=== PATIENT | male | born 1960 | race Caucasian/White ===

== ENCOUNTER 2018-07-27 10:02 | Emergency (ER) | payer BC ==
[~2018-07-27] VITALS: Ht 175.3 cm; Wt 95.0 kg
[~2018-07-27 10:02] MED LIST: OXYC-138 PO
[2018-07-27] MEDS ORDERED: oxyCODONE/APAP 10/325mg tablet PO ONE (10:55)
[2018-07-27] MEDS ORDERED: normal saline 1000ML IV soln IV ONE (10:55)
[2018-07-27] MEDS ORDERED: morphine 4 MG/ML inj SYRINge IV ONE ×3 (10:55→12:50)
[2018-07-27] MEDS ORDERED: ondansetron/PF 4mg/2ml inj IV ONE (10:55)
[2018-07-27 11:45] LABS: BASOPHILS % (AUTO) 0.7 % (0-1); EOSINOPHILS # (AUTO) 0.1 X10'3 (0-0.9); EOSINOPHILS % (AUTO) 1.9 % (0-6); HEMATOCRIT 44.8 % (42.0-52.0); HEMOGLOBIN 15.2 g/dl (14.0-17.9); LYMPHOCYTES # (AUTO) 1.4 X10'3 (1.1-4.8); LYMPHOCYTES % (AUTO) 21.4 % (21-51); MEAN CORPUSCULAR HEMOGLOBIN 34.2 PG (27.0-31.0); MEAN CORPUSCULAR VOLUME 100.7 FL (78-98); MEAN PLATELET VOLUME 7.4 FL (7.4-10.4); MONOCYTES # (AUTO) 0.8 X10'3 (0-0.9); MONOCYTES % (AUTO) 11.5 % (2-12); NEUTROPHILS # (AUTO) 4.3 X10'3 (1.8-7.7); NEUTROPHILS % (AUTO) 64.5 % (42-75); PLATELET COUNT 205 X10'3 (140-440); RED BLOOD COUNT 4.45 X10'6 (4.70-6.10); RED CELL DISTRIBUTION WIDTH 14.8 % (11.5-14.5); WHITE BLOOD COUNT 6.6 X10'3 (4.5-11.0)
[2018-07-27 11:55] LABS: CLARITY,URINE CLEAR (Clear); COLOR,URINE STRAW (Yellow); GLUCOSE, URINE NEGATIVE (Neg); KETONES,URINE NEGATIVE (Neg); LEUKOCYTE ESTERASE ,URINE NEGATIVE (Neg); NITRITES, URINE NEGATIVE (Neg); OCCULT BLOOD,URINE NEGATIVE (Neg); PH,URINE 7.5 (4.8-8.0); PROTEIN,URINE NEGATIVE (Neg); UROBILINOGEN,URINE 0.2 E.U/dL (0.2-1.0)
[2018-07-27 11:56] LABS: UA COLLECTION TYPE CLN CATCH MIDSTREAM
[2018-07-27 11:58] LABS: ALANINE AMINOTRANSFERASE 42 U/L (12-78); ALBUMIN 4.2 G/DL (3.4-5.0); ALKALINE PHOSPHATASE 83 IU/L (46-116); ANION GAP 10 (8-16); ASPARTATE AMINO TRANSFERASE 69 U/L (10-37); BILIRUBIN,TOTAL 0.3 MG/DL (0.1-1.0); BLOOD UREA NITROGEN 9 MG/DL (7-18); BUN/CREATININE RATIO 11.7 (5.4-32.0); CALCIUM 9.4 MG/DL (8.5-10.1); CHLORIDE 99 MMOL/L (99-107); CREATININE 0.77 MG/DL (0.60-1.10); ETHANOL 0.188 GM/DL (0.0-0.010); GLUCOSE 113 MG/DL (70-104); POTASSIUM 3.4 MMOL/L (3.5-5.1); SODIUM 138 MMOL/L (135-145); TOTAL CARBON DIOXIDE 28.7 MMOL/L (24-32); TOTAL PROTEIN 8.3 G/DL (6.4-8.2); eGFR > 90 ML/MIN
[2018-07-27] MEDS ORDERED: iohexol 300mg/ml 100ml inj. ONE (12:04)
[2018-07-27 12:08] LABS: URINE AMPHETAMINE SCREEN NEGATIVE (Neg); URINE BARBITUATE SCREEN NEGATIVE (Neg); URINE BENZODIAZEPINES SCREEN NEGATIVE (Neg); URINE CANNABINOID SCREEN NEGATIVE (Neg); URINE COCAINE SCREEN NEGATIVE (Neg); URINE METHADONE SCREEN NEGATIVE (Neg); URINE OPIATE SCREEN NEGATIVE (Neg); URINE PHENCYCLIDINE SCREEN NEGATIVE (Neg)
[2018-07-27 12:30] VITALS: BP 133/84
[2018-07-27] MEDS ORDERED: DOXY100C43 PO (12:50)
[2018-07-27] MEDS ORDERED: CEPH-571 PO (12:50)
== END 2018-07-27 13:24 | disposition home or self-care (01) ==
LOC: ER 10:02
DX: F10.129 Alcohol abuse with intoxication, unspecified (principal); G89.29 Other chronic pain; L08.9 Local infection of the skin and subcutaneous tissue, unspecified; R42 Dizziness and giddiness; Y90.0 Blood alcohol level of less than 20 mg/100 ml
CPT/HCPCS: 36415; 73201; 80053; 80305; 80320; 81003; 84145; 85025; 85651; 87040; 96361; 96374; 96375; 96376; 99284; J2270; J2405; J7030; Q9967; 83605

== ENCOUNTER 2018-08-06 15:45 | Emergency (ER) | payer BC ==
[~2018-08-06] VITALS: Ht 177.8 cm; Wt 87.3 kg
[~2018-08-06 15:45] MED LIST changes: +CEPH-571 PO; +DOXY100C43 PO
[2018-08-06 17:11] LABS: BASOPHILS % (AUTO) 0.9 % (0-1); EOSINOPHILS # (AUTO) 0.2 X10'3 (0-0.9); EOSINOPHILS % (AUTO) 4.6 % (0-6); HEMATOCRIT 40.1 % (42.0-52.0); HEMOGLOBIN 13.8 g/dl (14.0-17.9); LYMPHOCYTES # (AUTO) 0.9 X10'3 (1.1-4.8); LYMPHOCYTES % (AUTO) 19.1 % (21-51); MEAN CORPUSCULAR HEMOGLOBIN 34.8 PG (27.0-31.0); MEAN CORPUSCULAR HGB CONC 34.3 % (33.0-36.5); MEAN CORPUSCULAR VOLUME 101.4 FL (78-98); MEAN PLATELET VOLUME 6.4 FL (7.4-10.4); MONOCYTES # (AUTO) 0.6 X10'3 (0-0.9); MONOCYTES % (AUTO) 12.1 % (2-12); NEUTROPHILS # (AUTO) 2.9 X10'3 (1.8-7.7); NEUTROPHILS % (AUTO) 63.3 % (42-75); PLATELET COUNT 208 X10'3 (140-440); RED BLOOD COUNT 3.96 X10'6 (4.70-6.10); RED CELL DISTRIBUTION WIDTH 15.4 % (11.5-14.5); WHITE BLOOD COUNT 4.6 X10'3 (4.5-11.0)
[2018-08-06 17:24] LABS: ALANINE AMINOTRANSFERASE 47 U/L (12-78); ALBUMIN 3.1 G/DL (3.4-5.0); ALBUMIN/GLOBULIN RATIO 0.8 (1.1-1.5); ALKALINE PHOSPHATASE 74 IU/L (46-116); ANION GAP 13 (8-16); ASPARTATE AMINO TRANSFERASE 78 U/L (10-37); BILIRUBIN,TOTAL 0.2 MG/DL (0.1-1.0); BLOOD UREA NITROGEN 7 MG/DL (7-18); BUN/CREATININE RATIO 10.4 (5.4-32.0); CHLORIDE 103 MMOL/L (99-107); CREATININE 0.67 MG/DL (0.60-1.10); GLUCOSE 111 MG/DL (70-104); POTASSIUM 3.4 MMOL/L (3.5-5.1); SODIUM 141 MMOL/L (135-145); TOTAL CARBON DIOXIDE 24.8 MMOL/L (24-32); TOTAL PROTEIN 6.9 G/DL (6.4-8.2); eGFR > 90 ML/MIN
[2018-08-06 17:26] LABS: ETHANOL 0.298 GM/DL (0.0-0.010)
[2018-08-06 17:56] LABS: URINE AMPHETAMINE SCREEN NEGATIVE (Neg); URINE BARBITUATE SCREEN NEGATIVE (Neg); URINE BENZODIAZEPINES SCREEN NEGATIVE (Neg); URINE CANNABINOID SCREEN NEGATIVE (Neg); URINE COCAINE SCREEN NEGATIVE (Neg); URINE METHADONE SCREEN NEGATIVE (Neg); URINE OPIATE SCREEN NEGATIVE (Neg); URINE PHENCYCLIDINE SCREEN NEGATIVE (Neg)
[2018-08-06] MEDS ORDERED: ibuprofen tablet 400 MG TABLET PO PRN (19:50)
[2018-08-06] MEDS ORDERED: haloperidol lactate 5mg/ml inj IM PRN (20:25)
[2018-08-06] MEDS ORDERED: haloperidol 5mg tablet PO PRN (20:25)
[2018-08-06] MEDS ORDERED: LORazepam 1 MG tablet PO PRN (20:25)
[2018-08-07 03:21] VITALS: BP 130/80
== END 2018-08-06 22:30 | disposition home or self-care (01) ==
LOC: ER 15:45 → ED HOLD 18:34 → ER 22:30
DX: R45.851 Suicidal ideations (principal); F10.10 Alcohol abuse, uncomplicated; G89.29 Other chronic pain; Z79.2 Long term (current) use of antibiotics; Z79.899 Other long term (current) drug therapy
CPT/HCPCS: 36415; 80053; 80305; 80320; 85025; 99284

== ENCOUNTER 2018-10-11 12:50 | Inpatient (IN) | payer BC | END 2018-10-13 11:30 | disposition home or self-care (01) | LOC: ER 12:50 → ED HOLD 17:24 → PCU 3S 21:01 ==

== ENCOUNTER 2018-10-17 21:35 | Inpatient (IN) | payer BC ==
[~2018-10-17] VITALS: Ht 175.3 cm; Wt 85.1 kg
[~2018-10-17 21:35] MED LIST changes: +ASPI-1071 PO; +ATOR20TA66 PO; +BENA10TA74 PO; +CARV6.253 PO; -CEPH-571 PO; -DOXY100C43 PO; +FOLI1TAB16 PO; +GABA-534 PO; +HYDR12.5 PO; +MULT-1179 PO; +NITR0.4T51 SL; -OXYC-138 PO; +POTA-82 PO; +thiamine tablet PO
[2018-10-17] MEDS ORDERED: normal saline 1000ML IV soln IVB ONE (23:15)
[2018-10-17 23:16] LABS: BASOPHILS # (AUTO) 0.1 X10'3 (0-0.2); BASOPHILS % (AUTO) 1.4 % (0-1); EOSINOPHILS # (AUTO) 0.1 X10'3 (0-0.9); EOSINOPHILS % (AUTO) 0.5 % (0-6); HEMATOCRIT 45.8 % (42.0-52.0); LYMPHOCYTES # (AUTO) 1.9 X10'3 (1.1-4.8); LYMPHOCYTES % (AUTO) 17.4 % (21-51); MEAN CORPUSCULAR HEMOGLOBIN 35.5 PG (27.0-31.0); MEAN CORPUSCULAR HGB CONC 34.9 g/dL (33.0-36.5); MEAN CORPUSCULAR VOLUME 101.9 FL (78-98); MEAN PLATELET VOLUME 7.3 FL (7.4-10.4); MONOCYTES # (AUTO) 0.6 X10'3 (0-0.9); MONOCYTES % (AUTO) 5.3 % (2-12); NEUTROPHILS # (AUTO) 8.1 X10'3 (1.8-7.7); NEUTROPHILS % (AUTO) 75.4 % (42-75); PLATELET COUNT 369 X10'3 (140-440); RED CELL DISTRIBUTION WIDTH 14.3 % (11.5-14.5); WHITE BLOOD COUNT 10.8 X10'3 (4.5-11.0)
[2018-10-17 23:28] LABS: ALANINE AMINOTRANSFERASE 37 U/L (12-78); ALBUMIN 3.5 G/DL (3.4-5.0); ALBUMIN/GLOBULIN RATIO 0.9 (1.1-1.5); ALKALINE PHOSPHATASE 72 IU/L (46-116); ANION GAP 15 (8-16); ASPARTATE AMINO TRANSFERASE 29 U/L (10-37); BILIRUBIN,TOTAL 0.2 MG/DL (0.1-1.0); BLOOD UREA NITROGEN 10 MG/DL (7-18); BUN/CREATININE RATIO 13.3 (5.4-32.0); CALCIUM 8.3 MG/DL (8.5-10.1); CHLORIDE 97 MMOL/L (99-107); CREATININE 0.75 MG/DL (0.60-1.10); GLUCOSE 134 MG/DL (70-104); POTASSIUM 4.7 MMOL/L (3.5-5.1); SODIUM 134 MMOL/L (135-145); TOTAL CARBON DIOXIDE 22.4 MMOL/L (24-32); TOTAL PROTEIN 7.6 G/DL (6.4-8.2); eGFR > 90 ML/MIN
[2018-10-17] MEDS ORDERED: CefTRIAXone/D5W-Rocephin 1gm 50 ML IV ONE (23:35)
[2018-10-17] MEDS ORDERED: azithromycin/NS 500mg/250ml 250 ML IV ONE (23:35)
[2018-10-17 23:49] LABS: TROPONIN I 0.08 NG/ML (0.0-0.05)
[2018-10-18] MEDS ORDERED: furosemide 40mg/4ml inj IV ONE ×2 (00:05→03:15)
[2018-10-18] MEDS ORDERED: furosemide 10 MG/1 ML 10ml inj IV ONE (00:05)
[2018-10-18] MEDS ORDERED: LORazepam 0.5 MG tablet PO PRN (00:20)
--- NOTE | 2018-10-18 01:13 | NUR ---
PATIENT CONTINUES TO REQUEST ATIVAN. HE STATES THAT HE RECIEVED ATIVAN(2MG AT A TIME) THE LAST TIME HE WAS AT THE HOSPITAL. HOWEVER, PATIENT WAS ADMITTED FOR ETOH WITHDRAWL WHICH IS WHY THE ATIVAN WAS PRESCRIBED. PATIENT STATES NEEDS MORE ATIVAN FOR HIS SOB
[2018-10-18] MEDS ORDERED: potassium Cl 40MEQ/NS 500ml 500 ML IV PRN ×2 (02:25)
[2018-10-18] MEDS ORDERED: mag hydrox/Alum hydrox/simeth 30ml oral suspension PO PRN (02:25)
[2018-10-18] MEDS ORDERED: gabapentin 300mg capsule PO SCH (02:25)
[2018-10-18] MEDS ORDERED: ondansetron/PF 4mg/2ml inj IV PRN (02:25)
[2018-10-18] MEDS ORDERED: acetaminophen 325mg tablet PO PRN ×2 (02:25)
[2018-10-18] MEDS ORDERED: magnesium hydroxide 30ml (MOM) UD suspension PO PRN (02:25)
[2018-10-18] MEDS ORDERED: potassium Cl 20 mEq SR tablet PO PRN ×2 (02:25)
--- NOTE | 2018-10-18 06:30 | NUR ---
pt demands to be brought upstairs to pt room. educated about admit process. pt changed into gown and placed on monitor. 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 educated about importance. will continue to susana.
[2018-10-18] MEDS: K and/or MAG REPLACEMENT MC SCH (08:00)
--- NOTE | 2018-10-18 08:30 | NUR ---
pt wants to speak with md. irby hospitalist. awaiting call back.
[2018-10-18] MEDS: enoxaparin 40mg/0.4ml syringe SUBCUT SCH (08:31)
[2018-10-18] MEDS: atorvastatin 20mg tablet PO SCH (08:32)
[2018-10-18] MEDS: gabapentin 400mg capsule PO SCH ×2 (08:32→16:23)
[2018-10-18] MEDS: lisinopril 10 MG tablet PO SCH (08:32)
[2018-10-18] MEDS: thiamine 100mg tablet PO SCH (08:32)
[2018-10-18] MEDS: potassium Cl 20 mEq SR tablet PO SCH (08:32)
[2018-10-18] MEDS: aspirin 81mg tablet.DR PO SCH (08:32)
[2018-10-18] MEDS: folic acid 1mg tablet PO SCH (08:32)
[2018-10-18] MEDS: furosemide 40mg/4ml inj IV SCH ×2 (08:33→16:10)
[2018-10-18] MEDS: HYDROchlorothiazide 12.5mg capsule PO SCH (08:33)
[2018-10-18] MEDS: multivitamins, therapeutics tablet PO SCH (08:33)
--- NOTE | 2018-10-18 08:49 | NUR ---
pt refuses to keep leads on for monitoring. educated about importance. pt continues to refuse.
[2018-10-18 09:35] VITALS: BP 145/88
[2018-10-18 11:00] VITALS: BP 106/61
[2018-10-18] MEDS: LORazepam 0.5 MG tablet PO PRN ×3 (12:04→21:42)
[2018-10-18] MEDS: levoFLOXACIN 500mg tablet PO SCH (12:04)
--- NOTE | 2018-10-18 14:54 | NUR ---
Given CHF exit care, Cardiac Rehab Schedule, and AHA handout, went over the handouts with patient. Educated to patient needs a follow up appointment in week from [place]. Has appointment with Dana Lambert on Friday the . Educated to discuss hospital stay and CHF with Dana Lambert at appointment.
[2018-10-18 15:00] VITALS: BP 132/82
--- NOTE | 2018-10-18 16:21 | NUR ---
PAGER ID: [phone] MESSAGE: [id number] Saurav Cote reports feeling anxious despite the Ativan, he is wondering if his Ativan could be increase. KATI Wynne Ext [phone]
--- NOTE | 2018-10-18 17:48 | NUR ---
PAGER ID: [phone] MESSAGE: [id number] Saurav Hendersonsukhwinder is wondering if his Ativan can be increased. KATI Wynne Ext [phone]
[2018-10-18 18:00] VITALS: BP 111/80
--- NOTE | 2018-10-18 18:00 | NUR ---
Patient in room PCU 3013. I have received report from KATI Wynne and had the opportunity to ask questions and assume patient care.
--- NOTE | 2018-10-18 18:07 | NUR ---
Problems reprioritized. Patient report given, questions answered & plan of care reviewed with KATI Chu.
--- NOTE | 2018-10-18 21:00 | NUR ---
Patient c/o anxiety at the beginning of shift. He had received Ativan 0.5mg at 1600 by dayshift. Patient began reporting that the dose of the Ativan was inadequate, that he had been receiving 2 mg of Ativan IVP at a recent hospital stay. I contacted Dr. Sandoval to ask if he could advise. Per Dr. Sandoval, Patient is only to have the dose of 0.5mg of Ativan and that he had already spoken with the patient regarding this. He would not be be increasing the dose at this time. This was explained to the patient.
[2018-10-18 22:00] VITALS: BP 128/79
[2018-10-18] MEDS: ipratropium/albuterol 3ml nebule NEB SCH (23:48)
[2018-10-19] MEDS: furosemide 40mg/4ml inj IV SCH ×2 (00:12→07:37)
[2018-10-19] MEDS: gabapentin 400mg capsule PO SCH ×2 (00:12→07:36)
[2018-10-19 02:00] VITALS: BP 105/63
[2018-10-19] MEDS: ipratropium/albuterol 3ml nebule NEB SCH ×4 (03:00→11:00)
[2018-10-19] MEDS: LORazepam 0.5 MG tablet PO PRN ×3 (05:20→13:38)
[2018-10-19 06:00] VITALS: BP 115/73
[2018-10-19 06:00] LABS: BASOPHILS # (AUTO) 0.1 X10'3 (0-0.2); BASOPHILS % (AUTO) 0.7 % (0-1); EOSINOPHILS # (AUTO) 0.1 X10'3 (0-0.9); HEMATOCRIT 46.8 % (42.0-52.0); LYMPHOCYTES # (AUTO) 2.5 X10'3 (1.1-4.8); LYMPHOCYTES % (AUTO) 28.9 % (21-51); MEAN CORPUSCULAR HEMOGLOBIN 35.2 PG (27.0-31.0); MEAN CORPUSCULAR HGB CONC 34.2 g/dL (33.0-36.5); MEAN CORPUSCULAR VOLUME 102.9 FL (78-98); MEAN PLATELET VOLUME 7.9 FL (7.4-10.4); MONOCYTES % (AUTO) 11.8 % (2-12); NEUTROPHILS # (AUTO) 4.9 X10'3 (1.8-7.7); NEUTROPHILS % (AUTO) 57.6 % (42-75); PLATELET COUNT 329 X10'3 (140-440); RED BLOOD COUNT 4.55 X10'6 (4.70-6.10); WHITE BLOOD COUNT 8.5 X10'3 (4.5-11.0)
--- NOTE | 2018-10-19 06:00 | NUR ---
Problems reprioritized. Patient report given, questions answered & plan of care reviewed with KATI Wynne.
[2018-10-19 06:16] LABS: ALBUMIN 3.5 G/DL (3.4-5.0); ANION GAP 11 (8-16); BLOOD UREA NITROGEN 16 MG/DL (7-18); BUN/CREATININE RATIO 13.7 (5.4-32.0); CALCIUM 8.5 MG/DL (8.5-10.1); CHLORIDE 97 MMOL/L (99-107); CREATININE 1.17 MG/DL (0.60-1.10); GLUCOSE 105 MG/DL (70-104); SODIUM 142 MMOL/L (135-145); TOTAL CARBON DIOXIDE 34.5 MMOL/L (24-32); eGFR 64 ML/MIN
--- NOTE | 2018-10-19 06:19 | NUR ---
Took critical lab value Potassium of 3.0. Sticky note given to Ricci PARIKH
--- NOTE | 2018-10-19 06:21 | NUR ---
Called Dr Cole to let notify him of K of 3.0. Already have replacement orders in.
[2018-10-19] MEDS: K and/or MAG REPLACEMENT MC SCH (07:20)
[2018-10-19] MEDS: thiamine 100mg tablet PO SCH (07:36)
[2018-10-19] MEDS: atorvastatin 20mg tablet PO SCH (07:36)
[2018-10-19] MEDS: lisinopril 10 MG tablet PO SCH (07:36)
[2018-10-19] MEDS: folic acid 1mg tablet PO SCH (07:36)
[2018-10-19] MEDS: multivitamins, therapeutics tablet PO SCH (07:36)
[2018-10-19] MEDS: aspirin 81mg tablet.DR PO SCH (07:36)
[2018-10-19] MEDS: enoxaparin 40mg/0.4ml syringe SUBCUT SCH (07:37)
[2018-10-19] MEDS: HYDROchlorothiazide 12.5mg capsule PO SCH (07:37)
[2018-10-19] MEDS: potassium Cl 20 mEq SR tablet PO SCH (08:55)
[2018-10-19] MEDS ORDERED: pneumococcal 23-VAL P-sac vacc 25 mcg/0.5ml vial IMVAC ONE (10:00)
[2018-10-19] MEDS ORDERED: FURO-150 PO (10:29)
[2018-10-19] MEDS ORDERED: LEVO500T89 PO (10:29)
[2018-10-19] MEDS ORDERED: CARV-49 PO (10:37)
[2018-10-19] MEDS ORDERED: POTA20TA19 PO (10:38)
[2018-10-19] MEDS ORDERED: potassium Cl 20 mEq SR tablet PO STA (10:41)
[2018-10-19] MEDS: levoFLOXACIN 500mg tablet PO SCH (10:54)
[2018-10-19 11:00] VITALS: BP 136/85
--- NOTE | 2018-10-19 11:02 | NUR ---
PAGER ID: [phone] MESSAGE: [id number] Saurav Butts was wondering if you could talk to him before he leaves he had some questions. KATI Wynne Ext [phone]
[2018-10-19] MEDS ORDERED: potassium Cl 20 mEq SR tablet PO ONE (11:45)
--- NOTE | 2018-10-19 12:21 | NUR ---
Medications delivered by [facility], received Ativan.
--- NOTE | 2018-10-19 13:12 | NUR ---
Daughter called were about patient discharging. I left a message to have S.S. worker give her a call. S.S. talked with daughter. S.S. will come see patient about [phone].
[2018-10-19] MEDS ORDERED: LORazepam 2 mg/ml vial IV ONE (13:15)
--- NOTE | 2018-10-19 14:21 | NUR ---
DC'd. IV and tele out. Stable for DC per MD. Received meds from [facility], received Ativan med from med delivery. Took Uber home. Has appoinment with [facility] on 10/20/18 and rehab set up [facility].
[2018-10-19] MEDS ORDERED: lactobacillus rhamnosus 10,000 MMU CELLS/CAPSULE PO SCH (20:00)
== END 2018-10-19 14:15 | disposition home or self-care (01) | DRG 293 ==
LOC: ER 21:36 → ED HOLD 10-18 02:23 → PCU 3S 10-18 09:35
PROVIDERS: ADMIT Hospitalist; ATTEND Family Medicine
DX: I11.0 Hypertensive heart disease with heart failure (principal); I50.23 Acute on chronic systolic (congestive) heart failure; F10.20 Alcohol dependence, uncomplicated; F41.1 Generalized anxiety disorder; I25.10 Atherosclerotic heart disease of native coronary artery without angina pectoris; G89.29 Other chronic pain; Z87.891 Personal history of nicotine dependence; Z91.14 Patient's other noncompliance with medication regimen
CPT/HCPCS: 36415; 80048; 80053; 83880; 84145; 84484; 85025; 87070; 90732; 94640; 94760; 96365; 96368; 96375; 99285; G0378; J0456; J0696; J1650; J1940; J2405

== ENCOUNTER 2019-12-06 09:18 | Day surgery (SDC) | payer BC, OTHER ==
[2019-12-06] VITALS (9 sets, daily range): BP systolic 105–123; BP diastolic 55–71
[~2019-12-06] VITALS: Ht 177.8 cm; Wt 90.4 kg
[~2019-12-06 09:18] MED LIST changes: +CARV-49 PO; -CARV6.253 PO; +FURO-150 PO; -HYDR12.5 PO; +LEVO500T89 PO; -NITR0.4T51 SL; -POTA-82 PO
[2019-12-06] MEDS ORDERED: normal saline 1,000 ML IV SCH (09:50)
[2019-12-06] MEDS ORDERED: diphenhydrAMINE 25mg capsule PO PRN ×2 (09:50→10:35)
[2019-12-06] MEDS ORDERED: FURO40TA4 PO (10:03)
[2019-12-06] MEDS ORDERED: SACU1TAB (10:03)
[2019-12-06] MEDS ORDERED: OXYC-511 PO (10:03)
[2019-12-06] MEDS ORDERED: POTA20TA19 PO (10:03)
[2019-12-06] MEDS ORDERED: NALT50TA PO (10:03)
[2019-12-06] MEDS ORDERED: CARV3.12 PO (10:03)
[2019-12-06] MEDS ORDERED: IBUP-1985 PO (10:03)
[2019-12-06 10:17] LABS: BASOPHILS % (AUTO) 0.7 % (0-1); EOSINOPHILS # (AUTO) 0.3 X10'3 (0-0.9); EOSINOPHILS % (AUTO) 3.9 % (0-6); HEMATOCRIT 40.6 % (42.0-52.0); HEMOGLOBIN 13.8 g/dl (14.0-17.9); LYMPHOCYTES # (AUTO) 1.6 X10'3 (1.1-4.8); LYMPHOCYTES % (AUTO) 22.1 % (21-51); MEAN CORPUSCULAR HEMOGLOBIN 35.1 PG (27.0-31.0); MEAN CORPUSCULAR VOLUME 103.1 FL (78-98); MONOCYTES # (AUTO) 0.8 X10'3 (0-0.9); MONOCYTES % (AUTO) 11.9 % (2-12); NEUTROPHILS # (AUTO) 4.4 X10'3 (1.8-7.7); NEUTROPHILS % (AUTO) 61.4 % (42-75); PLATELET COUNT 202 X10'3 (140-440); RED BLOOD COUNT 3.94 X10'6 (4.70-6.10); RED CELL DISTRIBUTION WIDTH 14.8 % (11.5-14.5); WHITE BLOOD COUNT 7.1 X10'3 (4.5-11.0)
[2019-12-06 10:27] LABS: ALBUMIN 3.5 G/DL (3.4-5.0); ANION GAP 4 (8-16); BLOOD UREA NITROGEN 15 MG/DL (7-18); BUN/CREATININE RATIO 19.5 (5.4-32.0); CHLORIDE 106 MMOL/L (99-107); CREATININE 0.77 MG/DL (0.60-1.10); GLUCOSE 98 MG/DL (70-104); POTASSIUM 3.5 MMOL/L (3.5-5.1); SODIUM 142 MMOL/L (135-145); TOTAL CARBON DIOXIDE 31.6 MMOL/L (24-32); eGFR > 90 ML/MIN
[2019-12-06] MEDS ORDERED: proCHLORperazine 10 MG/2 ml inj ONE (10:48)
[2019-12-06] MEDS ORDERED: midazolam 2 mg/2 ml injection ONE ×3 (10:49→11:30)
[2019-12-06] MEDS ORDERED: iohexol 350 MG/ML 50ML vial IV ONE (10:49)
[2019-12-06] MEDS ORDERED: LIDOcaine 1% (10mg/ml)w/preservative injection 20ml MDV ONE (10:49)
[2019-12-06] MEDS ORDERED: fentaNYL/PF 50MCG/1 ML 2ML syringe ONE (10:49)
[2019-12-06] MEDS ORDERED: iohexol 350MG/ML 100ml bottle IV ONE (10:49)
--- NOTE | 2019-12-06 12:20 | NUR ---
pt returned to room. Site has FemStop in place, small amt of drainage under femstop. Pt is easy to arouse, states pain is 10/10 on [address] groin. Repositioned pt and pt responded by stating "that feels better." Pt on RA, vs stable as charted. Will continue to monitor.
[2019-12-06] MEDS ORDERED: proCHLORperazine 10 MG/2 ml inj IV PRN (12:30)
[2019-12-06] MEDS ORDERED: HYDROcodone/acetaminophen 10/325mg tab PO PRN (12:30)
[2019-12-06] MEDS ORDERED: HYDROcodone/acetaminophen 5mg/325mg tablet PO PRN (12:30)
[2019-12-06] MEDS ORDERED: normal saline 1000ml 1,000 ML IV SCH (12:30)
[2019-12-06] MEDS ORDERED: ondansetron/PF 4mg/2ml inj IV PRN (12:30)
--- NOTE | 2019-12-06 12:30 | NUR ---
Problems reprioritized. Patient report given, questions answered & plan of care reviewed with Tess PARIKH.
--- NOTE | 2019-12-06 12:30 | NUR ---
Bedside report rec'd from Lisa Reynaga RN-pt sleeping-femstop in place-groin soft to palpation-scant amount of red drainage-VSS
== END 2019-12-06 15:45 | disposition home or self-care (01) ==
LOC: SSTAY O 09:18 → MED 3N 09:20 → SSTAY O 15:45
PROVIDERS: ATTEND Internal Medicine Cardiovascular Disease
DX: I35.0 Nonrheumatic aortic (valve) stenosis (principal); I42.0 Dilated cardiomyopathy; I34.0 Nonrheumatic mitral (valve) insufficiency; I10 Essential (primary) hypertension; F10.10 Alcohol abuse, uncomplicated; Z98.890 Other specified postprocedural states; Z87.891 Personal history of nicotine dependence; Z79.899 Other long term (current) drug therapy; Z72.89 Other problems related to lifestyle; Z80.0 Family history of malignant neoplasm of digestive organs
CPT/HCPCS: 36415; 80048; 83735; 85025; 85610; 93005; 93460; 99152; 99153; C1769; C1894; J0780; J1644; J2001; J2250; J3010; Q0163; Q9967; A4620; A6258; C1760; GO378

== ENCOUNTER 2020-01-03 05:56 | Inpatient (IN) | payer BC, OTHER ==
[~2020-01-03] VITALS: Ht 177.8 cm; Wt 88.6 kg
[~2020-01-03 05:56] MED LIST changes: -ASPI-1071 PO; -ATOR20TA66 PO; -BENA10TA74 PO; -CARV-49 PO; +CARV3.12 PO; -FOLI1TAB16 PO; -FURO-150 PO; +FURO40TA4 PO; +IBUP-1985 PO; -LEVO500T89 PO; -MULT-1179 PO; +NALT50TA PO; +OXYC-511 PO; +POTA20TA19 PO; +SACU1TAB PO; -thiamine tablet PO
[2020-01-03] MEDS ORDERED: pantoprazole IV 80 MG in normal saline 100ml IV soln 100 ML IV ONE (06:35)
[2020-01-03] MEDS ORDERED: normal saline 1000ML IV soln IVB ONE (06:35)
[2020-01-03] MEDS ORDERED: ondansetron/PF 4mg/2ml inj IV ONE (06:35)
[2020-01-03] MEDS ORDERED: LORazepam 2 mg/ml vial IV ONE (06:35)
[2020-01-03] MEDS ORDERED: pantoprazole 40 MG vial IV ONE (06:40)
[2020-01-03 07:16] LABS: BASOPHILS % (AUTO) 0.6 % (0-1); EOSINOPHILS # (AUTO) 0.1 X10'3 (0-0.9); HEMATOCRIT 34.3 % (42.0-52.0); HEMOGLOBIN 11.7 g/dl (14.0-17.9); LYMPHOCYTES # (AUTO) 1.9 X10'3 (1.1-4.8); LYMPHOCYTES % (AUTO) 25.5 % (21-51); MEAN CORPUSCULAR HEMOGLOBIN 35.6 PG (27.0-31.0); MEAN CORPUSCULAR HGB CONC 34.2 g/dL (33.0-36.5); MEAN CORPUSCULAR VOLUME 104.2 FL (78-98); MEAN PLATELET VOLUME 7.3 FL (7.4-10.4); MONOCYTES # (AUTO) 0.9 X10'3 (0-0.9); MONOCYTES % (AUTO) 12.3 % (2-12); NEUTROPHILS # (AUTO) 4.6 X10'3 (1.8-7.7); NEUTROPHILS % (AUTO) 60.6 % (42-75); PLATELET COUNT 149 X10'3 (140-440); RED BLOOD COUNT 3.29 X10'6 (4.70-6.10); RED CELL DISTRIBUTION WIDTH 17.1 % (11.5-14.5); WHITE BLOOD COUNT 7.5 X10'3 (4.5-11.0)
[2020-01-03 07:28] LABS: PARTIAL THROMBOPLASTIN TIME 27 SECONDS (22-32)
[2020-01-03 07:29] LABS: ALANINE AMINOTRANSFERASE 22 U/L (12-78); ALBUMIN 3.2 G/DL (3.4-5.0); ALBUMIN/GLOBULIN RATIO 0.9 (1.1-1.5); ALKALINE PHOSPHATASE 61 IU/L (46-116); ANION GAP 9 (8-16); ASPARTATE AMINO TRANSFERASE 25 U/L (10-37); BILIRUBIN,TOTAL 0.4 MG/DL (0.1-1.0); BLOOD UREA NITROGEN 38 MG/DL (7-18); BUN/CREATININE RATIO 43.2 (5.4-32.0); CALCIUM 8.4 MG/DL (8.5-10.1); CHLORIDE 105 MMOL/L (99-107); CREATININE 0.88 MG/DL (0.60-1.10); ETHANOL 0.106 GM/DL (0.0-0.010); GLUCOSE 100 MG/DL (70-104); POTASSIUM 3.9 MMOL/L (3.5-5.1); SODIUM 141 MMOL/L (135-145); TOTAL CARBON DIOXIDE 27.5 MMOL/L (24-32); TOTAL PROTEIN 6.7 G/DL (6.4-8.2); eGFR 88 ML/MIN
[2020-01-03 07:41] LABS: OCCULT BLOOD STOOL POSITIVE (Neg)
[2020-01-03 07:50] LABS: CLARITY,URINE CLEAR (Clear); COLOR,URINE YELLOW (Yellow); GLUCOSE, URINE NEGATIVE (Neg); KETONES,URINE 15 mg/dl (Neg); LEUKOCYTE ESTERASE ,URINE NEGATIVE (Neg); NITRITES, URINE NEGATIVE (Neg); OCCULT BLOOD,URINE NEGATIVE (Neg); PH,URINE 5.5 (4.8-8.0); PROTEIN,URINE NEGATIVE (Neg); UROBILINOGEN,URINE 0.2 E.U/dL (0.2-1.0)
[2020-01-03] MEDS ORDERED: dextrose 50%-water 50ml dispensing syringe IV PRN (07:50)
[2020-01-03] MEDS ORDERED: metoclopramide 5 mg/ml inj IV PRN (07:50)
[2020-01-03] MEDS ORDERED: ondansetron/PF 4mg/2ml inj IV PRN (07:50)
[2020-01-03] MEDS ORDERED: acetaminophen 325mg tablet PO PRN (07:50)
[2020-01-03] MEDS ORDERED: thiamine 100mg/ml 2ml inj. IV ONE (07:50)
[2020-01-03] MEDS ORDERED: magnesium hydroxide 30ml (MOM) UD suspension PO PRN (07:50)
[2020-01-03] MEDS ORDERED: mag hydrox/Alum hydrox/simeth 30ml oral suspension PO PRN (07:50)
[2020-01-03 07:55] LABS: UA COLLECTION TYPE VOIDED
--- NOTE | 2020-01-03 07:55 | NUR ---
Call to Tamra at this time to review medications patient is taking.
[2020-01-03] MEDS ORDERED: LORA2TAB96 PO (07:58)
[2020-01-03] MEDS ORDERED: FOLI0.8C2 PO (07:58)
[2020-01-03] MEDS ORDERED: CARV6.2555 PO (07:58)
[2020-01-03] MEDS ORDERED: ACET-1015 PO (07:58)
[2020-01-03] MEDS: normal saline 1000ml 1,000 ML IV SCH ×2 (08:24→14:16)
--- NOTE | 2020-01-03 08:49 | NUR ---
Patient in room ED 3. I have received report from Bhumi PARIKH and had the opportunity to ask questions and assume patient care. Awaiting patient arrival to U 3018S.
--- NOTE | 2020-01-03 09:15 | NUR ---
Patient arrived in 301 apprx. 0857. Patient was with personal items in bag, by wheelchair with RN. Patient is a/o X4, cooperative. Vital signs BP:129/79, P:92, RR:18, Temp:98.9, O2:97%RA. Will continue to monitor.
[2020-01-03] MEDS: LORazepam 2 mg/ml vial IV PRN ×7 (09:30→23:47)
[2020-01-03] MEDS ORDERED: MVI, adult No.4 with vit. K 10 ML in dextrose 5% water 500ml 500 ML IV SCH ×2 (10:30)
[2020-01-03] MEDS ORDERED: folic acid 1mg/0.2ml inj IV SCH (10:45)
[2020-01-03 11:00] VITALS: BP 115/61
[2020-01-03] MEDS ORDERED: pantoprazole 40MG/NS 100ML BAG 100 ML IV ONE (11:00)
[2020-01-03 11:51] LABS: HEMATOCRIT 30.1 % (42.0-52.0); HEMOGLOBIN 10.4 g/dl (14.0-17.9); MEAN CORPUSCULAR HEMOGLOBIN 35.8 PG (27.0-31.0); MEAN CORPUSCULAR HGB CONC 34.5 g/dL (33.0-36.5); MEAN CORPUSCULAR VOLUME 103.9 FL (78-98); MEAN PLATELET VOLUME 6.9 FL (7.4-10.4); PLATELET COUNT 125 X10'3 (140-440); RED CELL DISTRIBUTION WIDTH 16.9 % (11.5-14.5); WHITE BLOOD COUNT 5.4 X10'3 (4.5-11.0)
[2020-01-03] MEDS ORDERED: octreotide inj. 1,250 MCG in normal saline 250ml IV soln 250 ML IV SCH (12:40)
--- NOTE | 2020-01-03 13:30 | NUR ---
Paged Dr. Valles Re: Saurav Alvarenga [id number]. Do you want the protonix IV to be continuous? ER only ordered it a one time dose. Coco RN [phone] Doctor responded with orders to run protonix continuously until procedure.
--- NOTE | 2020-01-03 14:00 | NUR ---
Paged Dr. Valles. Re: Saurav Alvarenga [id number]. FYI Pt had a 4 beat run of Vtach. No mag lab values drawn today. Coco RN [id number]
[2020-01-03 15:00] VITALS: BP 104/66
[2020-01-03] MEDS: multivitamins, therapeutics tablet PO SCH (15:37)
[2020-01-03 15:46] LABS: MAGNESIUM 2.2 MG/DL (1.5-2.4)
[2020-01-03] MEDS: pantoprazole 40MG/NS 100ML BAG 100 ML IV SCH ×2 (16:28→23:42)
[2020-01-03 18:00] VITALS: BP 132/84
--- NOTE | 2020-01-03 18:22 | NUR ---
Problems reprioritized. Patient report given, questions answered & plan of care reviewed with Pat RN. Patient vital signs are stable.
--- NOTE | 2020-01-03 18:24 | NUR ---
[place]rientee documentation: I have reviewed and agree with all interventions, assessments performed and documented by KATI Sepulveda. [place]ee Medication Administration: For this medication-pass time frame, all medication were reviewed, dispensed, administered and documented per hospital policy by Coco PARIKH,
--- NOTE | 2020-01-03 18:24 | NUR ---
Problems reprioritized. Patient report given, questions answered & plan of care reviewed with Pat RN. Patient stable at transfer of care.
[2020-01-03] MEDS: carvedilol 6.25mg tablet PO SCH (20:37)
[2020-01-03] MEDS: sacubitril/valsartan 24mg-26mg tablet PO SCH (20:38)
[2020-01-03 23:00] VITALS: BP 123/69
[2020-01-04] VITALS (19 sets, daily range): BP systolic 91–130; BP diastolic 47–73
[2020-01-04] MEDS: LORazepam 2 mg/ml vial IV PRN ×10 (01:08→21:37)
[2020-01-04] MEDS: normal saline 1000ml 1,000 ML IV SCH ×2 (02:12→08:00)
[2020-01-04] MEDS: pantoprazole 40MG/NS 100ML BAG 100 ML IV SCH ×5 (04:41→21:00)
[2020-01-04 05:19] LABS: BASOPHILS % (AUTO) 0.7 % (0-1); EOSINOPHILS # (AUTO) 0.2 X10'3 (0-0.9); EOSINOPHILS % (AUTO) 3.4 % (0-6); HEMATOCRIT 27.4 % (42.0-52.0); HEMOGLOBIN 9.5 g/dl (14.0-17.9); LYMPHOCYTES # (AUTO) 1.6 X10'3 (1.1-4.8); LYMPHOCYTES % (AUTO) 31.7 % (21-51); MEAN CORPUSCULAR HGB CONC 34.5 g/dL (33.0-36.5); MEAN CORPUSCULAR VOLUME 104.3 FL (78-98); MEAN PLATELET VOLUME 7.7 FL (7.4-10.4); MONOCYTES # (AUTO) 0.7 X10'3 (0-0.9); MONOCYTES % (AUTO) 14.7 % (2-12); NEUTROPHILS # (AUTO) 2.4 X10'3 (1.8-7.7); NEUTROPHILS % (AUTO) 49.5 % (42-75); PLATELET COUNT 123 X10'3 (140-440); RED BLOOD COUNT 2.62 X10'6 (4.70-6.10); RED CELL DISTRIBUTION WIDTH 16.9 % (11.5-14.5); WHITE BLOOD COUNT 4.9 X10'3 (4.5-11.0)
[2020-01-04 05:34] LABS: ALBUMIN 2.7 G/DL (3.4-5.0); ALBUMIN/GLOBULIN RATIO 0.9 (1.1-1.5); ALKALINE PHOSPHATASE 47 IU/L (46-116); ANION GAP 3 (8-16); ASPARTATE AMINO TRANSFERASE 17 U/L (10-37); BILIRUBIN,TOTAL 0.5 MG/DL (0.1-1.0); BLOOD UREA NITROGEN 22 MG/DL (7-18); BUN/CREATININE RATIO 23.9 (5.4-32.0); CALCIUM 7.9 MG/DL (8.5-10.1); CHLORIDE 111 MMOL/L (99-107); CREATININE 0.92 MG/DL (0.60-1.10); GLUCOSE 105 MG/DL (70-104); POTASSIUM 4.2 MMOL/L (3.5-5.1); SODIUM 143 MMOL/L (135-145); TOTAL CARBON DIOXIDE 28.7 MMOL/L (24-32); TOTAL PROTEIN 5.6 G/DL (6.4-8.2); eGFR 84 ML/MIN
[2020-01-04 06:05] LABS: ALANINE AMINOTRANSFERASE 12 U/L (12-78)
--- NOTE | 2020-01-04 06:26 | NUR ---
Patient in room U 3012. I have received report from Deysi RN and had the opportunity to ask questions and assume patient care. Patient in bed and resting comfortably. In no acute distress.
--- NOTE | 2020-01-04 06:31 | NUR ---
Patient in room PCU 3012. I have received report from Deysi RN and had the opportunity to ask questions and assume patient care.
[2020-01-04] MEDS: multivitamins, therapeutics tablet PO SCH (07:19)
[2020-01-04] MEDS: sacubitril/valsartan 24mg-26mg tablet PO SCH ×2 (08:00→19:17)
[2020-01-04] MEDS ORDERED: FOLIC ACID 1 MG PO SCH (08:00)
[2020-01-04] MEDS ORDERED: potassium Cl 20 mEq SR tablet PO SCH (08:00)
[2020-01-04] MEDS ORDERED: furosemide 40mg tablet PO SCH (08:00)
[2020-01-04] MEDS: carvedilol 6.25mg tablet PO SCH ×2 (08:00→19:17)
[2020-01-04] MEDS ORDERED: MVI, adult No.4 with vit. K 10 ML in dextrose 5% water 500ml 500 ML IV SCH ×2 (08:00)
[2020-01-04] MEDS ORDERED: thiamine 100mg tablet PO SCH (08:00)
[2020-01-04] MEDS ORDERED: thiamine inj. 100 MG in normal saline 100ml IV soln 100 ML IV SCH (08:00)
[2020-01-04] MEDS ORDERED: folic acid 1mg tablet PO SCH (08:00)
[2020-01-04] MEDS ORDERED: MIDAZolam 5mg/5ml vial ONE (08:41)
[2020-01-04] MEDS ORDERED: LIDOcaine Viscous 15ml cup ONE (08:41)
[2020-01-04] MEDS ORDERED: fentaNYL/PF 50MCG/1 ML 2ML syringe ONE (08:41)
--- NOTE | 2020-01-04 10:35 | NUR ---
Patient returned from GI lab, sleeping at this time and in no distress. Post op vitals initiated and stable. Spoke to GI lab who stated patient can advance to clear liquid diet once regaining gag/swallow. Will pass onto primary nurse as well, and monitoring closely
--- NOTE | 2020-01-04 10:40 | NUR ---
Patient returned from procedure. Patient in bed resting. VSS. BP:97/48.Will continue to monitor.
--- NOTE | 2020-01-04 14:00 | NUR ---
Patient a/o X3, able to communicate needs. Patient very sleepy, but was able to test gag reflex. Patient gag reflex intact and offered water and broth. Will continue to advance diet as written by . Will continue to monitor
--- NOTE | 2020-01-04 17:40 | NUR ---
Orientee documentation: I have reviewed and agree with all interventions, assessments performed and documented by KATI Sepulveda. [place] Medication Administration: For this medication-pass time frame, all medication were reviewed, dispensed, administered and documented per hospital policy by KATI Sepulveda.
--- NOTE | 2020-01-04 18:00 | NUR ---
Patient in room PCU 3012. I have received report from Tina PARIKH and had the opportunity to ask questions and assume patient care.
--- NOTE | 2020-01-04 18:21 | NUR ---
Problems reprioritized. Patient report given, questions answered & plan of care reviewed with Sallie PARIKH. Patient stable at transfer of care.
--- NOTE | 2020-01-04 18:21 | NUR ---
Problems reprioritized. Patient report given, questions answered & plan of care reviewed with Sallie PARIKH. Vital signs are stable, patient in stable condition.
[2020-01-05] MEDS: LORazepam 2 mg/ml vial IV PRN ×3 (00:04→05:07)
[2020-01-05] MEDS: pantoprazole 40MG/NS 100ML BAG 100 ML IV SCH ×2 (00:28→05:09)
[2020-01-05 02:00] VITALS: BP 107/68
[2020-01-05 05:10] LABS: BASOPHILS % (AUTO) 0.4 % (0-1); EOSINOPHILS # (AUTO) 0.3 X10'3 (0-0.9); EOSINOPHILS % (AUTO) 4.8 % (0-6); HEMATOCRIT 27.2 % (42.0-52.0); HEMOGLOBIN 9.3 g/dl (14.0-17.9); LYMPHOCYTES # (AUTO) 1.3 X10'3 (1.1-4.8); LYMPHOCYTES % (AUTO) 25.5 % (21-51); MEAN CORPUSCULAR HEMOGLOBIN 35.6 PG (27.0-31.0); MEAN CORPUSCULAR VOLUME 104.8 FL (78-98); MEAN PLATELET VOLUME 7.9 FL (7.4-10.4); MONOCYTES # (AUTO) 0.6 X10'3 (0-0.9); MONOCYTES % (AUTO) 11.4 % (2-12); NEUTROPHILS # (AUTO) 3.1 X10'3 (1.8-7.7); NEUTROPHILS % (AUTO) 57.9 % (42-75); PLATELET COUNT 125 X10'3 (140-440); RED CELL DISTRIBUTION WIDTH 17.4 % (11.5-14.5); WHITE BLOOD COUNT 5.3 X10'3 (4.5-11.0)
[2020-01-05 05:41] LABS: ALANINE AMINOTRANSFERASE 13 U/L (12-78); ALBUMIN 2.7 G/DL (3.4-5.0); ALBUMIN/GLOBULIN RATIO 0.9 (1.1-1.5); ALKALINE PHOSPHATASE 50 IU/L (46-116); ANION GAP 2 (8-16); ASPARTATE AMINO TRANSFERASE 16 U/L (10-37); BILIRUBIN,TOTAL 0.3 MG/DL (0.1-1.0); BLOOD UREA NITROGEN 14 MG/DL (7-18); BUN/CREATININE RATIO 15.7 (5.4-32.0); CALCIUM 8.4 MG/DL (8.5-10.1); CHLORIDE 110 MMOL/L (99-107); CREATININE 0.89 MG/DL (0.60-1.10); GLUCOSE 91 MG/DL (70-104); SODIUM 141 MMOL/L (135-145); TOTAL CARBON DIOXIDE 29.2 MMOL/L (24-32); TOTAL PROTEIN 5.6 G/DL (6.4-8.2); eGFR 87 ML/MIN
--- NOTE | 2020-01-05 06:31 | NUR ---
Problems reprioritized. Patient report given, questions answered & plan of care reviewed with Tina PARIKH.
--- NOTE | 2020-01-05 06:39 | NUR ---
Patient in room PCU 3012. I have received report from Sallie PARIKH and had the opportunity to ask questions and assume patient care. Patient in bed. States he is considering leaving A.
--- NOTE | 2020-01-05 06:42 | NUR ---
Patient in room PCU 3012. I have received report from Sallie PARIKH and had the opportunity to ask questions and assume patient care.
[2020-01-05 07:00] VITALS: BP 150/106
--- NOTE | 2020-01-05 07:05 | NUR ---
Patient left AMA. Patient signed form, MD notified. Patient's vitals BP:150/106, P:89, RR:14, Temp: 98.5, O2:97%RA. Patients IVs were stopped, flushed and removed. Tele removed and personal items collected and with patient. Patient was escorted by wheelchair by RN, to front of [facility], where patient was picked up by , Tamra, in vehicle. Patient was educated on AMA.
[2020-01-05] MEDS ORDERED: LORazepam 1 MG tablet PO PRN (07:50)
[2020-01-05] MEDS ORDERED: LORazepam 2 mg/ml vial IV PRN (07:50)
[2020-01-07] MEDS ORDERED: LORazepam 1 MG tablet PO PRN (07:50)
[2020-01-07] MEDS ORDERED: LORazepam 2 mg/ml vial IV PRN (07:50)
== END 2020-01-05 07:15 | disposition left against medical advice (07) | DRG 378 ==
LOC: ER 05:56 → ED HOLD 07:49 → PCU 3S 08:55
PROVIDERS: ADMIT Family Medicine; ATTEND Family Medicine
PROC: 0DB68ZX Excision of Stomach, Via Natural or Artificial Opening Endoscopic, Diagnostic (ICD-10-PCS; principal; 2020-01-04)
DX: K25.4 Chronic or unspecified gastric ulcer with hemorrhage (principal); F10.239 Alcohol dependence with withdrawal, unspecified; I50.22 Chronic systolic (congestive) heart failure; D50.0 Iron deficiency anemia secondary to blood loss (chronic); D69.59 Other secondary thrombocytopenia; G89.29 Other chronic pain; I11.0 Hypertensive heart disease with heart failure; I25.10 Atherosclerotic heart disease of native coronary artery without angina pectoris; K21.0 Gastro-esophageal reflux disease with esophagitis; K29.70 Gastritis, unspecified, without bleeding; F41.9 Anxiety disorder, unspecified; Z53.29 Procedure and treatment not carried out because of patient's decision for other reasons
CPT/HCPCS: 36415; 43239; 71045; 76937; 80053; 80320; 81003; 82272; 82948; 83690; 83735; 85025; 85027; 85610; 85730; 86885; 86900; 86901; 87081; 93005; 96361; 96374; 96375; 99152; 99285; A4620; C9113; G0378; J2060; J2250; J2354; J2405; J3010; J3411; J3490; J7030; J7040; J7050

== ENCOUNTER 2020-01-12 07:06 | Inpatient (IN) | payer BC, OTHER ==
[2020-01-12] VITALS (9 sets, daily range): BP systolic 106–125; BP diastolic 48–71
[~2020-01-12] VITALS: Ht 177.8 cm; Wt 95.1 kg
[~2020-01-12 07:06] MED LIST changes: +ACET-1015 PO; -CARV3.12 PO; +CARV6.2555 PO; +FOLI0.8C2 PO; -GABA-534 PO; +LORA2TAB96 PO; -NALT50TA PO; -OXYC-511 PO
[2020-01-12] MEDS ORDERED: LORazepam 2 mg/ml vial IV ONE (08:10)
[2020-01-12] MEDS ORDERED: pantoprazole 40 MG vial IV ONE (08:10)
[2020-01-12] MEDS ORDERED: morphine 2 MG/ML inj. syringe IV PRN ×3 (08:10→09:50)
[2020-01-12] MEDS ORDERED: normal saline 1000ML IV soln IVB ONE (08:10)
[2020-01-12] MEDS ORDERED: proCHLORperazine 10 MG/2 ml inj IV ONE (08:10)
[2020-01-12 08:30] LABS: BASOPHILS # (AUTO) 0.1 X10'3 (0-0.2); BASOPHILS % (AUTO) 1.2 % (0-1); EOSINOPHILS # (AUTO) 0.1 X10'3 (0-0.9); EOSINOPHILS % (AUTO) 1.2 % (0-6); HEMATOCRIT 26.7 % (42.0-52.0); HEMOGLOBIN 9.1 g/dl (14.0-17.9); LYMPHOCYTES # (AUTO) 2.4 X10'3 (1.1-4.8); MEAN CORPUSCULAR HEMOGLOBIN 36.4 PG (27.0-31.0); MEAN CORPUSCULAR HGB CONC 34.1 g/dL (33.0-36.5); MEAN CORPUSCULAR VOLUME 106.7 FL (78-98); MEAN PLATELET VOLUME 6.9 FL (7.4-10.4); MONOCYTES # (AUTO) 0.8 X10'3 (0-0.9); MONOCYTES % (AUTO) 10.7 % (2-12); NEUTROPHILS # (AUTO) 3.7 X10'3 (1.8-7.7); NEUTROPHILS % (AUTO) 52.9 % (42-75); PLATELET COUNT 342 X10'3 (140-440); RED CELL DISTRIBUTION WIDTH 18.2 % (11.5-14.5)
[2020-01-12 08:37] LABS: PARTIAL THROMBOPLASTIN TIME 24 SECONDS (22-32)
[2020-01-12 08:39] LABS: ALANINE AMINOTRANSFERASE 17 U/L (12-78); ALBUMIN 3.1 G/DL (3.4-5.0); ALBUMIN/GLOBULIN RATIO 0.9 (1.1-1.5); ALKALINE PHOSPHATASE 58 IU/L (46-116); ANION GAP 10 (8-16); ASPARTATE AMINO TRANSFERASE 19 U/L (10-37); BILIRUBIN,TOTAL 0.3 MG/DL (0.1-1.0); BLOOD UREA NITROGEN 33 MG/DL (7-18); BUN/CREATININE RATIO 34.4 (5.4-32.0); CALCIUM 7.9 MG/DL (8.5-10.1); CHLORIDE 110 MMOL/L (99-107); CREATININE 0.96 MG/DL (0.60-1.10); ETHANOL 0.252 GM/DL (0.0-0.010); GLUCOSE 106 MG/DL (70-104); LIPASE 397 U/L (73-393); MAGNESIUM 2.1 MG/DL (1.5-2.4); POTASSIUM 4.5 MMOL/L (3.5-5.1); SODIUM 146 MMOL/L (135-145); TOTAL CARBON DIOXIDE 26.5 MMOL/L (24-32); TOTAL PROTEIN 6.6 G/DL (6.4-8.2); eGFR 80 ML/MIN
[2020-01-12] MEDS ORDERED: magnesium hydroxide 30ml (MOM) UD suspension PO PRN (09:50)
[2020-01-12] MEDS ORDERED: ondansetron/PF 4mg/2ml inj IV PRN (09:50)
[2020-01-12] MEDS ORDERED: acetaminophen 325mg tablet PO PRN ×2 (09:50)
[2020-01-12] MEDS ORDERED: mag hydrox/Alum hydrox/simeth 30ml oral suspension PO PRN (09:50)
[2020-01-12] MEDS ORDERED: HYDROcodone/acetaminophen 5mg/325mg tablet PO PRN (09:50)
[2020-01-12] MEDS ORDERED: HYDROcodone/acetaminophen 10/325mg tab PO PRN (09:50)
[2020-01-12 11:05] LABS: CLARITY,URINE CLEAR (Clear); COLOR,URINE YELLOW (Yellow); GLUCOSE, URINE NEGATIVE (Neg); KETONES,URINE 40 mg/dl (Neg); LEUKOCYTE ESTERASE ,URINE NEGATIVE (Neg); NITRITES, URINE NEGATIVE (Neg); OCCULT BLOOD,URINE NEGATIVE (Neg); PROTEIN,URINE NEGATIVE (Neg); UROBILINOGEN,URINE 0.2 E.U/dL (0.2-1.0)
[2020-01-12 11:11] LABS: URINE AMPHETAMINE SCREEN NEGATIVE (Neg); URINE BARBITUATE SCREEN NEGATIVE (Neg); URINE BENZODIAZEPINES SCREEN NEGATIVE (Neg); URINE CANNABINOID SCREEN NEGATIVE (Neg); URINE COCAINE SCREEN NEGATIVE (Neg); URINE METHADONE SCREEN NEGATIVE (Neg); URINE OPIATE SCREEN NEGATIVE (Neg); URINE PHENCYCLIDINE SCREEN NEGATIVE (Neg)
[2020-01-12] MEDS ORDERED: NALT50TA PO (11:18)
[2020-01-12 11:26] LABS: UA COLLECTION TYPE VOIDED
--- NOTE | 2020-01-12 11:51 | NUR ---
PT ATTEMPTED TO GET UP AND USE URINAL, PT WAS FOUND TO BE HUNCHED OVER IN BED AND DIAPHRETIC. PT VERY PALE, SLOW TO ANSWER QUESTIONS, ORIENTED X4, PT REPORTS FEELING DIZZY. NOTIFIED DR PACHECO. PT THEN NEEDED TO GET UP TO HAVE BM, PT HAD BLCK TARRY STOOL.
--- NOTE | 2020-01-12 11:55 | NUR ---
Received report from KATI Reynolds in ED. Patient arrived to PCU, ambulated with one person assistance to bed. Oriented to room, non skid socks on, tele on, call light within reach, 2 RN skin check complete. First set of vitals done, BP 106/48, HR 107, R 20, Temp 97.9F, 02 94 RA, pain 0/10.
[2020-01-12 11:57] LABS: MEAN CORPUSCULAR HEMOGLOBIN 36.2 PG (27.0-31.0); MEAN CORPUSCULAR HGB CONC 33.9 g/dL (33.0-36.5); MEAN CORPUSCULAR VOLUME 106.9 FL (78-98); MEAN PLATELET VOLUME 6.8 FL (7.4-10.4); PLATELET COUNT 296 X10'3 (140-440); RED BLOOD COUNT 1.93 X10'6 (4.70-6.10); RED CELL DISTRIBUTION WIDTH 17.9 % (11.5-14.5); WHITE BLOOD COUNT 7.6 X10'3 (4.5-11.0)
[2020-01-12 12:00] LABS: HEMATOCRIT 20.6 % (42.0-52.0)
--- NOTE | 2020-01-12 12:04 | NUR ---
Paged Dr Beal PAGER ID: [phone] MESSAGE: Re: Saurav Alvarenga [id number] Critical Hgb 7.0/Hct 20.6 Thanks Coco Roper [phone]
--- NOTE | 2020-01-12 12:53 | NUR ---
Paged Dr Beal PAGER ID: [phone] MESSAGE: Re: Saurav Alvarenga [id number] Are you able to come sign his blood consent please? Thanks Coco Roper [phone]
[2020-01-12] MEDS ORDERED: haloperidol lactate 5mg/ml inj IM PRN (13:55)
[2020-01-12] MEDS ORDERED: dextrose 50%-water 50ml dispensing syringe IV PRN (13:55)
[2020-01-12] MEDS ORDERED: haloperidol 5mg tablet PO PRN (13:55)
[2020-01-12] MEDS ORDERED: thiamine 100mg/ml 2ml inj. IV ONE (13:55)
[2020-01-12] MEDS ORDERED: thiamine inj. 100 MG in normal saline 100ml IV soln 100 ML IV ONE (14:15)
[2020-01-12] MEDS: LORazepam 2 mg/ml vial IV PRN ×3 (14:20→20:36)
[2020-01-12] MEDS: normal saline 1000ml 1,000 ML IV SCH ×2 (15:14→19:46)
[2020-01-12] MEDS: pantoprazole 40MG/NS 100ML BAG 100 ML IV SCH ×3 (17:01→21:00)
--- NOTE | 2020-01-12 17:38 | NUR ---
Paged Dr Beal PAGER ID: [phone] MESSAGE: Re: Saurav Alvarenga Rm [id number] FYI Pt had an 8 second wide complex SVT, but back to sinus tach at 115bpm. Thanks Coco Roper [phone]
--- NOTE | 2020-01-12 18:44 | NUR ---
Patient in room U 3027. I have received report from Coco Roper RN and had the opportunity to ask questions and assume patient care. Addendum: 01/12/20 at 1845 by Maria Teresa Gibbs RN Amended: Links added.
--- NOTE | 2020-01-12 18:54 | NUR ---
Problems reprioritized. Patient report given, questions answered & plan of care reviewed with KATI Morel. Informed RN pt received, and tolerated 2 units of blood due to low H&H 7.0/20.6 per MD orders. Informed RN that Dr Beal wants Q4H CBC until further notice to watch pt's H&H levels, next CBC should be drawn at 2220 on 01/12/20. Pt was started on protonix gtt per MD orders. And pt was started on the ETOH protocol per MD orders. All patient needs met at this time.
[2020-01-12 22:54] LABS: BASOPHILS # (AUTO) 0.1 X10'3 (0-0.2); BASOPHILS % (AUTO) 0.7 % (0-1); EOSINOPHILS % (AUTO) 0.2 % (0-6); HEMATOCRIT 23.6 % (42.0-52.0); LYMPHOCYTES # (AUTO) 1.4 X10'3 (1.1-4.8); LYMPHOCYTES % (AUTO) 18.3 % (21-51); MEAN CORPUSCULAR HEMOGLOBIN 33.7 PG (27.0-31.0); MEAN PLATELET VOLUME 7.2 FL (7.4-10.4); MONOCYTES # (AUTO) 1.1 X10'3 (0-0.9); MONOCYTES % (AUTO) 13.7 % (2-12); NEUTROPHILS # (AUTO) 5.3 X10'3 (1.8-7.7); NEUTROPHILS % (AUTO) 67.1 % (42-75); PLATELET COUNT 206 X10'3 (140-440); RED BLOOD COUNT 2.38 X10'6 (4.70-6.10); RED CELL DISTRIBUTION WIDTH 21.8 % (11.5-14.5); WHITE BLOOD COUNT 7.9 X10'3 (4.5-11.0)
[2020-01-13] MEDS: pantoprazole 40MG/NS 100ML BAG 100 ML IV SCH ×3 (00:26→10:59)
[2020-01-13] MEDS: normal saline 1000ml 1,000 ML IV SCH (00:27)
[2020-01-13 00:46] VITALS: BP 118/64
[2020-01-13] MEDS: LORazepam 2 mg/ml vial IV PRN ×7 (00:52→14:22)
[2020-01-13 02:44] LABS: BASOPHILS # (AUTO) 0.1 X10'3 (0-0.2); BASOPHILS % (AUTO) 0.9 % (0-1); EOSINOPHILS % (AUTO) 0.2 % (0-6); HEMATOCRIT 22.9 % (42.0-52.0); HEMOGLOBIN 7.8 g/dl (14.0-17.9); LYMPHOCYTES # (AUTO) 1.5 X10'3 (1.1-4.8); LYMPHOCYTES % (AUTO) 19.6 % (21-51); MEAN CORPUSCULAR HEMOGLOBIN 33.5 PG (27.0-31.0); MEAN CORPUSCULAR VOLUME 98.5 FL (78-98); MONOCYTES % (AUTO) 12.4 % (2-12); NEUTROPHILS # (AUTO) 5.2 X10'3 (1.8-7.7); NEUTROPHILS % (AUTO) 66.9 % (42-75); PLATELET COUNT 199 X10'3 (140-440); RED BLOOD COUNT 2.32 X10'6 (4.70-6.10); RED CELL DISTRIBUTION WIDTH 21.8 % (11.5-14.5); WHITE BLOOD COUNT 7.8 X10'3 (4.5-11.0)
[2020-01-13 02:53] LABS: ALBUMIN 2.6 G/DL (3.4-5.0); ANION GAP 5 (8-16); BLOOD UREA NITROGEN 30 MG/DL (7-18); BUN/CREATININE RATIO 36.6 (5.4-32.0); CALCIUM 7.4 MG/DL (8.5-10.1); CHLORIDE 118 MMOL/L (99-107); CREATININE 0.82 MG/DL (0.60-1.10); GLUCOSE 85 MG/DL (70-104); SODIUM 149 MMOL/L (135-145); TOTAL CARBON DIOXIDE 25.6 MMOL/L (24-32); eGFR > 90 ML/MIN
[2020-01-13 03:37] LABS: PLATELET ESTIMATE NORMAL
[2020-01-13 03:39] LABS: ANISOCYTOSIS 3+; POLYCHROMASIA 1+
[2020-01-13 04:14] VITALS: BP 123/57
[2020-01-13 06:00] VITALS: BP 121/59
--- NOTE | 2020-01-13 06:14 | NUR ---
Problems reprioritized. Patient report given, questions answered & plan of care reviewed with Palmira Ramos RN.
--- NOTE | 2020-01-13 06:15 | NUR ---
Patient in room PCU 3027. I have received report from KATI Crum and had the opportunity to ask questions and assume patient care. Patient currently resting in bed, bed locked and low, call light in reach, no acute distress, will continue to monitor.
[2020-01-13 07:19] LABS: BASOPHILS # (AUTO) 0.1 X10'3 (0-0.2); BASOPHILS % (AUTO) 0.8 % (0-1); EOSINOPHILS % (AUTO) 0.6 % (0-6); HEMATOCRIT 23.4 % (42.0-52.0); HEMOGLOBIN 7.9 g/dl (14.0-17.9); LYMPHOCYTES # (AUTO) 1.4 X10'3 (1.1-4.8); LYMPHOCYTES % (AUTO) 20.4 % (21-51); MEAN CORPUSCULAR HEMOGLOBIN 33.4 PG (27.0-31.0); MEAN CORPUSCULAR HGB CONC 33.8 g/dL (33.0-36.5); MEAN CORPUSCULAR VOLUME 98.8 FL (78-98); MEAN PLATELET VOLUME 7.2 FL (7.4-10.4); MONOCYTES # (AUTO) 0.7 X10'3 (0-0.9); MONOCYTES % (AUTO) 10.8 % (2-12); NEUTROPHILS # (AUTO) 4.5 X10'3 (1.8-7.7); NEUTROPHILS % (AUTO) 67.4 % (42-75); PLATELET COUNT 208 X10'3 (140-440); RED BLOOD COUNT 2.36 X10'6 (4.70-6.10); RED CELL DISTRIBUTION WIDTH 22.1 % (11.5-14.5); WHITE BLOOD COUNT 6.6 X10'3 (4.5-11.0)
[2020-01-13 08:00] VITALS: BP 121/59
[2020-01-13 08:06] LABS: PLATELET ESTIMATE NORMAL
[2020-01-13 08:08] LABS: ANISOCYTOSIS 3+
[2020-01-13 10:09] LABS: HEMATOCRIT 22.1 % (42.0-52.0); LYMPHOCYTES # (AUTO) 1.4 X10'3 (1.1-4.8); MEAN CORPUSCULAR HEMOGLOBIN 33.7 PG (27.0-31.0); RED BLOOD COUNT 2.21 X10'6 (4.70-6.10)
[2020-01-13 10:11] LABS: BASOPHILS # (AUTO) 0.1 X10'3 (0-0.2); BASOPHILS % (AUTO) 1.4 % (0-1); EOSINOPHILS # (AUTO) 0.1 X10'3 (0-0.9); HEMOGLOBIN 7.4 g/dl (14.0-17.9); LYMPHOCYTES % (AUTO) 22.5 % (21-51); MEAN CORPUSCULAR HGB CONC 33.6 g/dL (33.0-36.5); MEAN CORPUSCULAR VOLUME 100.4 FL (78-98); MEAN PLATELET VOLUME 7.1 FL (7.4-10.4); MONOCYTES # (AUTO) 0.8 X10'3 (0-0.9); MONOCYTES % (AUTO) 12.1 % (2-12); PLATELET COUNT 193 X10'3 (140-440); RED CELL DISTRIBUTION WIDTH 22.2 % (11.5-14.5); WHITE BLOOD COUNT 6.4 X10'3 (4.5-11.0)
[2020-01-13 10:28] LABS: ANISOCYTOSIS 3+; PLATELET ESTIMATE NORMAL
[2020-01-13 10:29] LABS: MICROCYTOSIS FEW
[2020-01-13 11:00] VITALS: BP 115/70
--- NOTE | 2020-01-13 11:39 | NUR ---
PAGER ID: [phone] MESSAGE: KATI Sepulveda, ext [phone], [phone], darling Cui H&H dropped to 7.4 from 7.8 at last draw
--- NOTE | 2020-01-13 13:46 | NUR ---
patient refused orthostatics Addendum: 01/13/20 at 1347 by Coco Dick RN Amended: Links added.
[2020-01-13 14:53] LABS: BASOPHILS # (AUTO) 0.1 X10'3 (0-0.2); BASOPHILS % (AUTO) 0.9 % (0-1); EOSINOPHILS # (AUTO) 0.1 X10'3 (0-0.9); EOSINOPHILS % (AUTO) 1.7 % (0-6); HEMOGLOBIN 7.3 g/dl (14.0-17.9); LYMPHOCYTES # (AUTO) 1.4 X10'3 (1.1-4.8); LYMPHOCYTES % (AUTO) 22.7 % (21-51); MEAN CORPUSCULAR HEMOGLOBIN 33.3 PG (27.0-31.0); MEAN CORPUSCULAR HGB CONC 33.5 g/dL (33.0-36.5); MEAN CORPUSCULAR VOLUME 99.4 FL (78-98); MEAN PLATELET VOLUME 6.9 FL (7.4-10.4); MONOCYTES # (AUTO) 0.7 X10'3 (0-0.9); MONOCYTES % (AUTO) 10.5 % (2-12); NEUTROPHILS % (AUTO) 64.2 % (42-75); PLATELET COUNT 197 X10'3 (140-440); RED BLOOD COUNT 2.21 X10'6 (4.70-6.10); RED CELL DISTRIBUTION WIDTH 22.1 % (11.5-14.5); WHITE BLOOD COUNT 6.3 X10'3 (4.5-11.0)
[2020-01-13 14:58] LABS: HEMATOCRIT 21.9 % (42.0-52.0)
--- NOTE | 2020-01-13 15:00 | NUR ---
PAGER ID: [phone] MESSAGE: KATI Sepulveda, ext [phone], [id number], Basilia, H&H 7.3.9, previous 7.12/28.
--- NOTE | 2020-01-13 15:02 | NUR ---
promotional table spacer PAGER ID: [phone] MESSAGE: KATI Sepulveda, ext [phone], [phone], says he is leaving AMA, does not want to wait for you to discharge him.
--- NOTE | 2020-01-13 15:16 | NUR ---
Patient dressed himiself and requested that IVs be removed. Stated he was leaving and would not wait to speak with Dr. Beal. Explained to patient the potential consequence of leaving against medical advice, patient is indifferent, IVs removed, catheter tips intact, hemostasis achieved, wrist band removed, AMA paperwork signed, walked patient to elevator, able to ambulate independently at time of discharge.
[2020-01-14] MEDS ORDERED: LORazepam 1 MG tablet PO PRN (13:55)
[2020-01-14] MEDS ORDERED: LORazepam 2 mg/ml vial IV PRN (13:55)
[2020-01-16] MEDS ORDERED: LORazepam 2 mg/ml vial IV PRN (13:55)
[2020-01-16] MEDS ORDERED: LORazepam 1 MG tablet PO PRN (13:55)
== END 2020-01-13 15:24 | disposition left against medical advice (07) | DRG 377 ==
LOC: ER 07:06 → ED HOLD 09:46 → PCU 3S 11:56
PROVIDERS: ADMIT Internal Medicine; ATTEND Internal Medicine
PROC: 30233N1 Transfusion of Nonautologous Red Blood Cells into Peripheral Vein, Percutaneous Approach (ICD-10-PCS; principal; 2020-01-12)
DX: K92.1 Melena (principal); K85.20 Alcohol induced acute pancreatitis without necrosis or infection; D62 Acute posthemorrhagic anemia; F10.239 Alcohol dependence with withdrawal, unspecified; I50.22 Chronic systolic (congestive) heart failure; Z53.29 Procedure and treatment not carried out because of patient's decision for other reasons; D53.9 Nutritional anemia, unspecified; F10.220 Alcohol dependence with intoxication, uncomplicated; I11.0 Hypertensive heart disease with heart failure; G89.29 Other chronic pain; I95.9 Hypotension, unspecified; Z79.899 Other long term (current) drug therapy
CPT/HCPCS: 36415; 36430; 71045; 76937; 80048; 80053; 80305; 80320; 81003; 82948; 83690; 83735; 83880; 85025; 85027; 85610; 85730; 86885; 86900; 86901; 86920; 87081; 93005; 96361; 96374; 96375; 99291; C9113; G0378; J0780; J2060; J3411; J7030; P9016

== ENCOUNTER 2020-06-27 02:58 | Emergency (ER) | payer BC, OTHER ==
[~2020-06-27] VITALS: Ht 172.7 cm; Wt 86.4 kg
[~2020-06-27 02:58] MED LIST changes: +NALT50TA PO
[2020-06-27 03:18] VITALS: BP 124/81
--- NOTE | 2020-06-27 03:59 | NUR ---
BLADDER SCANNED PT, 150 ML. SOFIA ROJAS AWARE
[2020-06-27 04:20] LABS: BASOPHILS # (AUTO) 0.1 X10'3 (0-0.2); BASOPHILS % (AUTO) 0.6 % (0-1); EOSINOPHILS # (AUTO) 0.2 X10'3 (0-0.9); EOSINOPHILS % (AUTO) 1.7 % (0-6); HEMATOCRIT 42.3 % (42.0-52.0); HEMOGLOBIN 14.4 g/dl (14.0-17.9); LYMPHOCYTES # (AUTO) 2.9 X10'3 (1.1-4.8); LYMPHOCYTES % (AUTO) 30.6 % (21-51); MEAN CORPUSCULAR HEMOGLOBIN 33.6 PG (27.0-31.0); MEAN CORPUSCULAR VOLUME 98.8 FL (78-98); MEAN PLATELET VOLUME 7.4 FL (7.4-10.4); MONOCYTES # (AUTO) 0.6 X10'3 (0-0.9); MONOCYTES % (AUTO) 6.8 % (2-12); NEUTROPHILS # (AUTO) 5.6 X10'3 (1.8-7.7); NEUTROPHILS % (AUTO) 60.3 % (42-75); PLATELET COUNT 203 X10'3 (140-440); RED BLOOD COUNT 4.29 X10'6 (4.70-6.10); RED CELL DISTRIBUTION WIDTH 13.9 % (11.5-14.5); WHITE BLOOD COUNT 9.4 X10'3 (4.5-11.0)
[2020-06-27 04:24] LABS: CLARITY,URINE CLEAR (Clear); COLOR,URINE YELLOW (Yellow); GLUCOSE, URINE NEGATIVE (Neg); KETONES,URINE TRACE mg/dl (Neg); LEUKOCYTE ESTERASE ,URINE NEGATIVE (Neg); NITRITES, URINE NEGATIVE (Neg); OCCULT BLOOD,URINE TRACE-INTACT (Neg); PH,URINE 5.5 (4.8-8.0); PROTEIN,URINE 100 mg/dl (Neg); UROBILINOGEN,URINE 0.2 E.U/dL (0.2-1.0)
[2020-06-27 04:26] LABS: UA COLLECTION TYPE URINAL
[2020-06-27 04:26] LABS: ALANINE AMINOTRANSFERASE 24 U/L (12-78); ALBUMIN 3.6 G/DL (3.4-5.0); ALKALINE PHOSPHATASE 78 IU/L (46-116); ANION GAP 12 (8-16); ASPARTATE AMINO TRANSFERASE 27 U/L (10-37); BILIRUBIN,TOTAL 0.4 MG/DL (0.1-1.0); BLOOD UREA NITROGEN 12 MG/DL (7-18); CALCIUM 8.1 MG/DL (8.5-10.1); CHLORIDE 105 MMOL/L (99-107); CREATININE 0.75 MG/DL (0.60-1.10); GLUCOSE 91 MG/DL (70-104); SODIUM 142 MMOL/L (135-145); TOTAL CARBON DIOXIDE 25.5 MMOL/L (24-32); TOTAL PROTEIN 7.3 G/DL (6.4-8.2); eGFR > 90 ML/MIN
[2020-06-27 04:30] LABS: BACTERIA,URINE NONE SEEN /HPF (Neg); RBC,URINE 0-2 /HPF (0-2); SQUAMOUS EPITHELIAL CELL,UR NONE SEEN /LPF (FEW); WBC,URINE NONE SEEN /HPF (0-4)
[2020-06-27 05:24] LABS: ETHANOL 0.401 GM/DL (0.0-0.010)
== END 2020-06-27 05:05 | disposition home or self-care (01) ==
LOC: ER 02:59
DX: R39.15 Urgency of urination (principal); R10.84 Generalized abdominal pain; I11.0 Hypertensive heart disease with heart failure; I50.9 Heart failure, unspecified; G89.29 Other chronic pain; Z98.890 Other specified postprocedural states; Z72.89 Other problems related to lifestyle; Z79.899 Other long term (current) drug therapy
CPT/HCPCS: 36415; 80053; 80320; 81001; 85025; 99284

== ENCOUNTER 2024-08-09 05:51 | Day surgery (SDC) | payer OTHER ==
[2024-08-02 10:40] LABS: BASOPHILS # (AUTO) 0.1 X10'3 (0-0.2); EOSINOPHILS # (AUTO) 0.3 X10'3 (0-0.9); EOSINOPHILS % (AUTO) 2.8 % (0-6); LYMPHOCYTES # (AUTO) 1.9 X10'3 (1.1-4.8); LYMPHOCYTES % (AUTO) 18.3 % (21-51); MEAN CORPUSCULAR HEMOGLOBIN 37.1 PG (27.0-31.0); MEAN CORPUSCULAR HGB CONC 34.5 g/dL (33.0-36.5); MEAN CORPUSCULAR VOLUME 107.6 FL (78-98); MONOCYTES % (AUTO) 10.1 % (2-12); NEUTROPHILS % (AUTO) 67.8 % (42-75); PRE OP HEMATOCRIT 44.5 % (42.0-52.0); PRE OP HEMOGLOBIN 15.3 g/dL (14.0-17.9); PRE OP PLATELET COUNT 198 X10'3 (140-440); PRE OP WHITE BLOOD COUNT 10.3 10'3 (4.8-10.8); RED BLOOD COUNT 4.14 X10'6 (4.70-6.10); RED CELL DISTRIBUTION WIDTH 13.3 % (11.5-14.5)
[2024-08-02 11:40] LABS: ALBUMIN 3.7 G/DL (3.4-5.0); ALBUMIN/GLOBULIN RATIO 0.8 (1.1-1.5); ALKALINE PHOSPHATASE 56 IU/L (46-116); BLOOD UREA NITROGEN 14 MG/DL (7-18); BUN/CREATININE RATIO 15.4 (10.0-20.0); CALCIUM 9.1 MG/DL (8.5-10.1); CHLORIDE 100 MMOL/L (99-107); CREATININE 0.91 MG/DL (0.60-1.10); PRE OP ALT 34 U/L (30-65); PRE OP ANION GAP 8 (8-16); PRE OP AST 39 U/L (10-37); PRE OP BILIRUB, TOTAL 0.5 MG/DL (0.0-1.0); PRE OP GLUCOSE 110 MG/DL (70-104); PRE OP POTASSIUM 4.7 MMOL/L (3.4-5.1); PRE OP SODIUM 137 MMOL/L (135-145); TOTAL CARBON DIOXIDE 29.5 MMOL/L (24-32); TOTAL PROTEIN 8.1 G/DL (6.4-8.2); eGFR 84 ML/MIN
[~2024-08-09] VITALS: Ht 175.3 cm; Wt 103.1 kg
[2024-08-09] VITALS (7 sets, daily range): BP systolic 144–162; BP diastolic 60–112; PULSE 72–98; RESP 14–19; TEMP 98; O2SAT 94–95
[~2024-08-09 05:51] MED LIST changes: -ACET-1015 PO; +FINA5TAB11 PO; +FLO0.4C PO; -FOLI0.8C2 PO; -FURO40TA4 PO; -IBUP-1985 PO; -LORA2TAB96 PO; -NALT50TA PO; +PANT-47 PO; -POTA20TA19 PO; -SACU1TAB PO; +SACU1TAB7 PO; +SPIR25TA5 PO; +SUCR1ORA15 PO
[2024-08-09] MEDS: ringers solution, lacted 1,000 ML IV SCH (06:16)
[2024-08-09] MEDS: famotidine 20mg tablet PO ONE (06:16)
[2024-08-09] MEDS: ceFAZolin 2gm in dextrose, iso 50 ML IV ONE (06:16)
[2024-08-09] MEDS: DOCUMENT DATE & TIME OF BETA-BLOCKER PO ONE (06:17)
[2024-08-09] MEDS ORDERED: LIDOcaine 1%/PF 5ML 10 MG/ML VIAL ONE (06:38)
[2024-08-09] MEDS ORDERED: LIDOcaine 2% (20mg/ml) 5ml vial ONE (06:47)
[2024-08-09] MEDS ORDERED: BUPIVAcaine/PF 2.5mg/ml (0.25%) 10ml vial ONE (06:47)
[2024-08-09] MEDS ORDERED: morphine 4 MG/ML inj SYRINge IV PRN (07:45)
[2024-08-09] MEDS ORDERED: ondansetron/PF 4mg/2ml inj IV PRN (07:45)
[2024-08-09] MEDS ORDERED: morphine 2 MG/ML inj. syringe IV PRN (07:45)
[2024-08-09] MEDS ORDERED: hydrALAZINE 20mg/ml inj. IV PRN (07:45)
[2024-08-09] MEDS ORDERED: proCHLORperazine 10 MG/2 ml inj IV PRN (07:45)
[2024-08-09] MEDS ORDERED: meperidine/PF 25mg/ml syringe IV PRN ×2 (07:45)
[2024-08-09] MEDS ORDERED: labetalol 20mg/4ml (5mg/ml) syringe IV PRN (07:45)
[2024-08-09] MEDS ORDERED: ringers solution, lacted 1,000 ML IV SCH (07:45)
[2024-08-09] MEDS ORDERED: midazolam 1 mg/ML 2ml injection ONE (08:15)
[2024-08-09] MEDS ORDERED: fentaNYL/PF 50MCG/1 ML 2ML syringe ONE (08:15)
[2024-08-09] MEDS: BUPIVAcaine 2.5mg/ml inj 50ml vial (contains preservative) IJ ONE (08:30)
[2024-08-09] MEDS ORDERED: propofol inj 20 ML IV ONE ×3 (08:34→09:03)
[2024-08-09] MEDS ORDERED: LIDOcaine 0.5% (5mg/ml) 50ml vial ONE (08:34)
[2024-08-09] MEDS: acetaminophen 1,000mg/100ml IV 100 ML IV ONE (09:34)
[2024-08-09] MEDS: meperidine/PF 25mg/ml syringe IV PRN (09:55)
== END 2024-08-09 10:31 | disposition home or self-care (01) ==
LOC: PAS 05:51
PROVIDERS: ATTEND Orthopaedic Surgery Hand Surgery
DX: M72.0 Palmar fascial fibromatosis [Dupuytren] (principal); I11.0 Hypertensive heart disease with heart failure; I50.22 Chronic systolic (congestive) heart failure; I25.10 Atherosclerotic heart disease of native coronary artery without angina pectoris; E78.5 Hyperlipidemia, unspecified; K21.9 Gastro-esophageal reflux disease without esophagitis; I35.0 Nonrheumatic aortic (valve) stenosis; I42.0 Dilated cardiomyopathy; Z87.891 Personal history of nicotine dependence; Z79.899 Other long term (current) drug therapy; Z95.4 Presence of other heart-valve replacement; Z98.890 Other specified postprocedural states
CPT/HCPCS: 26123; 26125; 36415; 80053; 82948; 85025; A6222; J0131; J0690; J2003; J2175; J2250; J2704; J3010; J3490; J7030; J7120; Z7506; Z7508; Z7512; A4215; A4618; A6449; A7000

== ENCOUNTER 2024-11-15 09:02 | Emergency (ER) | payer OTHER ==
[~2024-11-15] VITALS: Ht 175.3 cm; Wt 108.5 kg
[2024-11-15 09:09] VITALS: BP 189/99; PULSE 81; RESP 16; TEMP 98.3; O2SAT 95
== END 2024-11-15 16:06 | disposition left against medical advice (07) ==
LOC: ER 09:03
DX: M54.50 Low back pain, unspecified (principal); Z53.21 Procedure and treatment not carried out due to patient leaving prior to being seen by health care provider